=== PATIENT | female | born 1970 ===

== ENCOUNTER 2024-02-20 22:04 | Emergency (ER) | payer OTHER, SELFPAY ==
[2024-02-20 22:16] VITALS: BP 138/76; PULSE 67; RESP 18; TEMP 36.6; O2SAT 98; BMI 30.7
== END 2024-02-20 23:20 | disposition left against medical advice (07) ==
LOC: ED 23:18
PROVIDERS: Emergency Provider Emergency Medicine Emergency Medical Services
DX: Z53.21 Procedure and treatment not carried out due to patient leaving prior to being seen by health care provider (principal)

== ENCOUNTER 2024-02-21 09:47 | Emergency (ER) | payer BC, SELFPAY ==
[2024-02-21] VITALS (7 sets, daily range): BP systolic 143–171; BP diastolic 81–93; PULSE 62–65; RESP 12–18; TEMP 35.9; O2SAT 94–97; BMI 30.6
--- NOTE | 2024-02-21 10:12 | CRLHL7_ITS ---
For Patients: As a result of the 21st Century Cures Act, medical imaging exams and procedure reports are released immediately into your electronic medical record. You may view this report before your referring provider. If you have questions, please contact your health care provider. INDICATION: Left abdominal pain, not otherwise specified. Left back pain. COMPARISON: None available. TECHNIQUE: CT of the abdomen and pelvis without intravenous contrast. Please note that all CT scans at this facility use dose modulation, iterative reconstruction, and/or weight-based dosing when appropriate to reduce radiation dose to as low as reasonably achievable. FINDINGS: The study is performed without intravenous contrast. This limits the sensitivity of the exam for the detection bowel pathology, focal lesions of the abdominopelvic viscera and vascular pathology including significant vascular stenosis, occlusion and dissection. ABDOMEN Liver: Normal hepatic attenuation. No suspicious focal hepatic lesion. No intrahepatic biliary ductal dilatation. Gallbladder: Normal gallbladder size. Normal common duct caliber. No pericholecystic inflammatory changes. Pancreas: Normal pancreatic attenuation. No focal lesion. Normal duct caliber. No peripancreatic inflammatory changes. Spleen: Normal splenic attenuation. No suspicious focal lesion. Adrenal Glands: Symmetrical adrenal glands. No focal lesion of significance. Kidneys: Normal bilateral renal attenuation. 1.3 cm left anterior interpolar renal cortical cyst measuring 11 HU (2; 51). No suspicious focal lesion. No obstructing nephrolith or dilatation of the upper urinary tracts. Gastrointestinal tract: Normal caliber, attenuation and wall thickness of the gastrointestinal tract. No inflammatory changes. Normal mesentery. Normal appendix. Vascular: Chronic moderate aortoiliac atherosclerotic mural calcification. Normal outer wall to outer wall abdominal aortic caliber. Patency and luminal caliber of the abdominopelvic arterial and venous vasculature cannot be assessed on this noncontrast study. Additional findings: No incidental adenopathy. No significant ascites, free fluid or pneumoperitoneum. PELVIS No bladder lesion is identified. No significant incidental findings related to the uterus and uterine adnexae. No abnormal free fluid. No incidental adenopathy. SKELETON AND BODY WALL Moderate L4-L5 disc degeneration. LOWER THORAX Bilateral lower lobe dependent subsegmental atelectasis. IMPRESSION: No acute imaging findings to explain the clinical history of left abdominal and left back pain. Incidental findings described above. Please note that all CT scans at this facility use dose modulation, iterative reconstruction, and/or weight-based dosing when appropriate to reduce radiation dose to as low as reasonably achievable. Dictated by Junior Parker MD @ 02/21/2024 10:57:00 AM (Electronically Signed)
--- NOTE | 2024-02-21 10:57 | ED_ITS ---
HPI - General Adult General Chief complaint: Abdominal Pain Stated complaint: Left side abdomen, back pain Time Seen by Provider: 02/21/24 09:50 Source: patient, family, RN notes reviewed and old records reviewed Mode of arrival: ambulatory Limitations: language barrier History of Present Illness HPI narrative: Patient is a 53-year-old Monegasque-speaking woman here with her son and [id number]. She apparently lives usually in [place] with her daughter and her daughter's children, but has been having more health problems lately and her son brought her down to stay with him as of yesterday. She was recently admitted to the hospital at [facility] secondary to rising creatinine and hyperkalemia. She does have a history of chronic kidney disease, diabetes, hypertension, coronary artery disease and COPD. She is brought in by her family today because of some left-sided back pain with radiation to the left abdomen. Initially family said that this started yesterday, however patient tells me that she had this in the hospital, they may have given her something for pain, she isn't sure. At home she has just been taking Tylenol. It sounds like maybe this pain worsened yesterday. She was discharged on the , with instructions to hold her spironolactone and SARAHI-inhibitor, she was to resume her Jardiance. She saw her primary doctor yesterday, Dr. Holcomb with [facility]. At the t reanna of her visit yesterday, she was denying pain. She did report having problems with anxiety not responding to hydroxyzine. It looks as if sertraline was started. She had a visit with nephrology while in the hospital, this was reviewed. She did have an ultrasound of her kidneys without evidence of hydronephrosis. Hyperkalemia was felt likely related to chronic kidney disease and addition of spironolactone, improved with holding the spironolactone and she was treated with a potassium binder. There are no reported fevers at home. Her family reports that she had a normal dinner last night, so far as they can tell her appetite has been normal. She has been having difficulty with bowel movements but did have a small soft bowel movement this morning. She has not had any diarrhea and has not had any vomiting. Has not reported urinary symptoms. She has a history of tobacco use, apparently quit last year. She does not drink according to family, though I note a previous diagnosis of mild alcohol use disorder. Patient speaks mostly Monegasque, at her request her son is helping to translate. Related Data Home Medications ?Medication ?Instructions ?Recorded ?Confirmed albuterol 90 mcg/actuation aerosol 180 mcg inhalation Q6H PRN 02/20/24 02/21/24 inhaler amlodipine 10 mg tablet (Norvasc) 10 mg PO DAILY 02/20/24 02/21/24 aspirin 81 mg capsule 81 mg PO DAILY 02/20/24 02/21/24 atorvastatin 10 mg tablet 10 mg PO DAILY 02/20/24 02/21/24 benzonatate 100 mg capsule 100 mg PO BID PRN 02/20/24 02/21/24 carvedilol 25 mg tablet 25 mg PO BID 02/20/24 02/21/24 empagliflozin 10 mg tablet 10 mg PO DAILY 02/20/24 02/21/24 hydroxyzine HCl 50 mg tablet 50 mg PO Q6-8H PRN 02/20/24 02/21/24 insulin pump cartridge 02/20/24 02/20/24 sertraline 25 mg tablet 25 mg PO Q24H 02/20/24 02/21/24 atorvastatin 80 mg tablet 80 mg PO QPM 02/21/24 02/21/24 insulin aspart U-100 100 unit/mL 8 unit subcut 3XD 02/21/24 02/21/24 (3 mL) subcutaneous pen (Novolog FlexPen U-100 Insulin aspart) insulin glargine 100 unit/mL (3 60 unit subcut QAM 02/21/24 02/21/24 mL) subcutaneous pen (Lantus Solostar U-100 Insulin) polyethylene glycol 3350 17 g PO 02/21/24 gram/dose oral powder Allergies Allergy/AdvReac Type Severity Reaction Status Date / Time No Known Drug Allergies Allergy Verified 02/20/24 22:11 Review of Systems Status of ROS: Reports: 10 or more systems reviewed and unremarkable except as noted in History and below [facility] Social History Non-prescribed substance use: denies use Exam Narrative: Exam Narrative: Vital signs as noted above. In general, an alert, nontoxic woman. She looks uncomfortable. Head: Normocephalic, atraumatic. Eyes: Pupils are equal reactive. Extraocular movements are full. Conjunctivae are normal. ENT: Mucous membranes are moist. Throat is normal. Neck: Supple without lymphadenopathy. Heart: Regular rate and rhythm. No murmur or rub. Lungs: Clear bilaterally. No increased work of breathing, crackles or wheezes. No CVA tenderness. Abdomen: Soft with some left-sided tenderness, no rebound rigidity or guarding. Extremities: Well perfused. No edema. No calf tenderness. Pulses intact. Neurologic: Patient is alert and oriented to person and place. Speech is fluent. Face is symmetric. Moves all extremities equally. Affect: Normal. Skin: Warm and dry. Well perfused. Const: Vital Signs, click to edit/add: Vital Signs - 24 hr 02/21/24 09:53 02/21/24 11:32 02/21/24 12:01 Temperature 96.6 F L Pulse Rate 62 62 Pulse Rate [Pulse Oximeter] 62 Respiratory Rate 18 14 16 Blood Pressure 156/82 H 156/81 H Blood Pressure [Ri ght Upper Arm] 143/82 H Pulse Oximetry 96 97 97 Oxygen Delivery Me thod Room Air Room Air 02/21/24 12:31 02/21/24 13:01 02/21/24 13:32 Temperature Pulse Rate 62 63 65 Pulse Rate [Pulse Oximeter] Respiratory Rate 16 12 14 Blood Pressure 155/82 H 171/92 H 161/93 H Blood Pressure [Ri ght Upper Arm] Pulse Oximetry 94 97 96 Oxygen Delivery Me thod 02/21/24 14:04 Temperature 96.6 F L Pulse Rate Pulse Rate [Pulse Oximeter] 62 Respiratory Rate 18 Blood Pressure Blood Pressure [Ri ght Upper Arm] 143/82 H Pulse Oximetry Oxygen Delivery Me thod Documenting provider has reviewed patient's vital signs: yes Course Course ED Course: Records were reviewed, which are fairly extensive given recent admission, nephrology consult, imaging and labs. I did elect to do a CT scan without contrast today given renal insufficiency. I recheck labs as well. She had an IV placed and was given 4 mg of morphine for pain control in the meantime. Her white blood cell count is normal at 9.9, hemoglobin is stable at 10.9. Her potassium is normal today at 4.9, sodium normal, her BUN is mildly elevated at 40, creatinine is elevated at 2.6 but this is improved compared to yesterday when it was 3. Potassium has normalized as well. Blood sugar elevated at 196. Lactate was normal, CRP very minimally elevated at 1.3, LFT and lipase normal. Urinalysis took a very long time to get, and is pending at this time. CT scan by my review did not show any evidence of kidney stone, hydronephrosis, perinephric stranding, bowel obstruction or other inflammatory changes. Final radiology review as follows:FINDINGS: The study is performed without intravenous contrast. This limits the sensitivity of the exam for the detection bowel pathology, focal lesions of the abdominopelvic viscera and vascular pathology including significant vascular stenosis, occlusion and dissection. ABDOMEN Liver: Normal hepatic attenuation. No suspicious focal hepatic lesion. No intrahepatic biliary ductal dilatation. Gallbladder: Normal gallbladder size. Normal common duct caliber. No pericholecystic inflammatory changes. Pancreas: Normal pancreatic attenuation. No focal lesion. Normal duct caliber. No peripancreatic inflammatory changes. Spleen: Normal splenic attenuation. No suspicious focal lesion. Adrenal Glands: Symmetrical adrenal glands. No focal lesion of significance. Kidneys: Normal bilateral renal attenuation. 1.3 cm left anterior interpolar renal cortical cyst measuring 11 HU (2; 51). No suspicious focal lesion. No obs tructing nephrolith or dilatation of the upper urinary tracts. Gastrointestinal tract: Normal caliber, attenuation and wall thickness of the gastrointestinal tract. No inflammatory changes. Normal mesentery. Normal appendix. Vascular: Chronic moderate aortoiliac atherosclerotic mural calcification. Normal outer wall to outer wall abdominal aortic caliber. Patency and luminal caliber of the abdominopelvic arterial and venous vasculature cannot be assessed on this noncontrast study. Additional findings: No incidental adenopathy. No significant ascites, free fluid or pneumoperitoneum. PELVIS No bladder lesion is identified. No significant incidental findings related to the uterus and uterine adnexae. No abnormal free fluid. No incidental adenopathy. SKELETON AND BODY WALL Moderate L4-L5 disc degeneration. LOWER THORAX Bilateral lower lobe dependent subsegmental atelectasis. IMPRESSION: No acute imaging findings to explain the clinical history of left abdominal and left back pain. Incidental findings described above. At this time, etiology of her symptoms is unclear. It does sound as if the back pain has been ongoing for a while, and may be muscular in nature. For now would recommend continued use of Tylenol, ice and/or heat may be helpful as well. For severe pain, new symptoms such as fever, vomiting etcetera return to the emergency department. Otherwise, would recommend outpatient follow-up as previously planned with primary care. She did provide a urine sample but does not want to wait for results, we will call if there is anything that requires treatment. Vital Signs Vital signs: Initial Vital Signs Temperature 96.6 F L 02/21/24 09:53 Temperature Source Temporal Artery Scan 02/21/24 09:53 Pulse Rate 62 02/21/24 09:53 Pulse Rhythm Regular 02/21/24 09:53 Respiratory Rate 18 02/21/24 09:53 Blood Pressure 143/82 H 02/21/24 09:53 Blood Pressure Mean 102 02/21/24 09:53 Blood Pressure Position Supine 02/21/24 09:53 Pulse Oximetry 96 02/21/24 09:53 Oxygen Delivery Method Room Air 02/21/24 09:53 Vital Signs Temperature 96.6 F L 02/21/24 09:53 Pulse Rate 62 02/21/24 09:53 Respiratory Rate 18 02/21/24 09:53 Blood Pressure 143/82 H 02/21/24 09:53 Pulse Oximetry 96 02/21/24 09:53 Oxygen Delivery Method Room Air 02/21/24 09:53 Temperature 96.6 F L 02/21/24 14:04 Pulse Rate 62 02/21/24 14:04 Respiratory Rate 18 02/21/24 14:04 Blood Pressure 143/82 H 02/21/24 14:04 Pulse Oximetry 96 02/21/24 13:32 Oxygen Delivery Method Room Air 02/21/24 11:32 Medications Administered Medications: Discontinued Medications Generic Name Dose Route Start Last Admin Trade Name Freq PRN Reason Stop Dose Admin Morphine Sulfate 4 mg 02/21/24 10:12 02/21/24 11:08 Morphine 4 Mg/Ml Inj IVP 02/21/24 10:13 4 mg ONCE ONE Administration Medical Decision Making Lab Data Labs: Lab Results 02/21/24 02/21/24 02/21/24 Range/Units 10:45 11:00 13:29 WBC 9.90 (4.50-11.00) K/uL RBC 4.14 (4.00-5.20) m/uL Hgb 10.9 L (12.0-16.0) gm/dL Hct 34.9 (33.0-51.0) % MCV 84 (80-100) fL MCH 26 (26-34) pg MCHC 31 L (32-36) gm/dL RDW Coeff of Kelly 13.1 (11.5-15.5) % Plt Count 314 (140-440) K/uL Neut % (Auto) 71.6 (42.0-72.0) % Lymph % (Auto) 19.1 L (20-44) % Searcy % (Auto) 7.1 (0.0-11.0) % Eos % (Auto) 1.9 (0.0-7.0) % Baso % (Auto) 0.2 (0.0-3.0) % Neut # (Auto) 7.09 H (1.7-7.0) K/uL Lymph # (Auto) 1.90 (0.90-2.90) K/uL Searcy # (Auto) 0.70 (0.00-0.90) K/UL Eos # (Auto) 0.19 (0.00-0.50) K/uL Baso # (Auto) 0.02 (0.00-0.30) K/uL Abs Immat Gran (auto) 0.01 (0.00-0.30) K/uL Imm/Tot Granulo (auto) 0.1 % Sodium 135 (135-149) mmol/L Potassium 4.9 (3.6-5.1) mmol/L Chloride 105 (96-114) mmol/L Carbon Dioxide 25 (20-32) mmol/L Anion Gap 5 L (7-15) mEq/L BUN 40 H (7-30) mg/dL Creatinine 2.6 H (0.5-1.5) mg/dL Estimated Creat Clear 21.86 Estimated GFR 22 ml/min Glucose 196 H (60-115) mg/dL Lactate 1.0 (0.5-1.9) mmol/L Calcium 9.5 (8.4-10.6) mg/dL Total Bilirubin 0.6 (0.1-1.5) mg/dL Direct Bilirubin 0.3 (0.0-0.5) mg/dL AST 18 (12-35) U/L ALT 17 (4-35) U/L Alkaline Phosphatase 95 (40-150) U/L C-Reactive Protein 1.3 H (0.5-1.0) mg/dL Total Protein 7.5 (6.0-8.3) g/dL Albumin 3.7 (3.3-5.0) g/dL Lipase 161 (23-300) U/L Urine Color Yellow (Yellow) Urine Appearance Clear (Clear) Urine pH 7.0 (5.0-8.5) Ur Specific [place] 1.020 (1.000-1.030) Urine Protein 3+ A (Negative) Urine Glucose (UA) 3+ A (Negative) Urine Ketones Negative (Negative) Urine Blood Trace-intact A (Negative) Urine Nitrite Negative (Negative) Urine Bilirubin Negative (Negative) Urine Urobilinogen 0.2 (0.2-1.0) Ur Leukocyte Esterase Negative (Negative) Urine RBC 2-5 A (0-2) Urine WBC 2-5 (0-5) Ur Squamous Epith Cells Few (None-Few) Urine Bacteria Few A (None) Discharge Plan Discharge Clinical Impression: Left flank pain Patient Disposition: Home, Self-Care Condition: Improved Instructions: Flank Pain (ED) Additional Instructions: Continue use of Tylenol, 1000 mg 3 times daily as needed. Ice or heat may be helpful as well. Lab work today is reassuring, your kidney function, while not normal is improved compared to yesterday. Your potassium is normal today. Your CT scan does not show any evidence of problems with your kidney or other internal organs. I would recommend outpatient follow-up as planned with your primary doctor. Return at any time if you have worsening pain, new symptoms such as fevers, vomiting, etc.. If there are abnormalities on your urinalysis which need to be addressed, we will call you. Contin?e usando Tylenol, 1000 mg 3 veces al d?a seg?n sea necesario. El hielo o el calor tambi?n pueden ser ?tiles. Los an?lisis de laboratorio de hoy son normales, bernard funci?n renal, aunque no es normal, robles citlalli en comparaci?n con yung. Bernard potasio es normal hoy. Bernard tomograf?a computarizada no muestra ninguna evidencia de problemas con bernard ri??n u otros ?rganos internos. Recomendar?a un seguimiento en la clinica seg?n lo planeado. Regrese en cualquier momento si tiene un empeoramiento del dolor, nuevos s?ntomas orlando fiebre, v?mitos, etc. Si hay anomal?as en bernard an?lisis de orina que deban abordarse, lo llamaremos. Prescriptions: No Action sertraline 25 mg tablet 25 mg PO Q24H albuterol 90 mcg/actuation aerosol 180 mcg inhalation Q6H PRN amlodipine [Norvasc] 10 mg tablet 10 mg PO DAILY aspirin 81 mg capsule 81 mg PO DAILY atorvastatin 10 mg tablet 10 mg PO DAILY benzonatate 100 mg capsule 100 mg PO BID PRN carvedilol 25 mg tablet 25 mg PO BID Rx Instructions: must administer with a meal/food empagliflozin 10 mg tablet 10 mg PO DAILY hydroxyzine HCl 50 mg tablet 50 mg PO Q6-8H PRN (DME) insulin pump cartridge .ROUTE atorvastatin 80 mg tablet 80 mg PO QPM polyethylene glycol 3350 17 gram/dose powder PO insulin aspart U-100 [Novolog FlexPen U-100 Insulin] 100 unit/mL (3 mL) insulin pen 8 unit subcut 3XD insulin glargine [Lantus Solostar U-100 Insulin] 100 unit/mL (3 mL) insulin pen 60 unit subcut QAM Follow Up/Referrals: Estee Holcomb MD [Primary Care Provider] - Stand Alone Forms: [facility] Info Instructions
[2024-02-21 11:08] LABS: Basophils Absolute Auto 0.02 K/uL (0.00-0.30); Basophils Percent Auto 0.2 % (0.0-3.0); Eosinophils Absolute Auto 0.19 K/uL (0.00-0.50); Eosinophils Percent Auto 1.9 % (0.0-7.0); Hematocrit 34.9 % (33.0-51.0); Hemoglobin* 10.9 gm/dL (12.0-16.0); Immature Granulocytes Abs Auto 0.01 K/uL (0.00-0.30); Immature Granulocytes Pct Auto 0.1 %; Lymphocytes Percent Auto 19.1 % (20-44); Mean Corpuscular HGB Conc 31 gm/dL (32-36); Mean Corpuscular Hemoglobin 26 pg (26-34); Mean Corpuscular Volume 84 fL (80-100); Monocytes Percent Auto 7.1 % (0.0-11.0); Neutrophils Absolute Auto 7.09 K/uL (1.7-7.0); Neutrophils Percent Auto 71.6 % (42.0-72.0); Platelet Count* 314 K/uL (140-440); RDW Coefficient of Variation % 13.1 % (11.5-15.5); Red Blood Count 4.14 m/uL (4.00-5.20)
[2024-02-21] MEDS: MORPHINE 4 MG/ML INJ IVP (11:08)
[2024-02-21 11:09] LABS: Slide Review Reflex No
[2024-02-21 11:33] LABS: Albumin* 3.7 g/dL (3.3-5.0)
[2024-02-21 11:36] LABS: Alanine Aminotransferase* 17 U/L (4-35); Alkaline Phosphatase* 95 U/L (40-150); Aspartate Amino Transferase* 18 U/L (12-35); Bilirubin Direct* 0.3 mg/dL (0.0-0.5); Bilirubin Total* 0.6 mg/dL (0.1-1.5); Lipase* 161 U/L (23-300); Total Protein* 7.5 g/dL (6.0-8.3)
[2024-02-21 11:37] LABS: Chloride* 105 mmol/L (96-114); Potassium* 4.9 mmol/L (3.6-5.1); Sodium* 135 mmol/L (135-149)
[2024-02-21 11:40] LABS: Anion Gap 5 mEq/L (7-15); Blood Urea Nitrogen* 40 mg/dL (7-30); Carbon Dioxide* 25 mmol/L (20-32); Creatinine* 2.6 mg/dL (0.5-1.5); Est. Creatinine Clearance* 21.86; Estimated Glomerular Filt Rate 22 ml/min
[2024-02-21 11:41] LABS: Calcium* 9.5 mg/dL (8.4-10.6); Glucose* 196 mg/dL (60-115)
[2024-02-21 11:43] LABS: C Reactive Protein* 1.3 mg/dL (0.5-1.0)
[2024-02-21 13:44] LABS: Appearance Urine Clear (Clear); Bilirubin Urine Negative (Negative); Blood Urine Trace-intact (Negative); Color Urine Yellow (Yellow); Glucose Urine 3+ (Negative); Ketones Urine Negative (Negative); Leukocyte Esterase Urine Negative (Negative); Nitrite Urine Negative (Negative); Protein Urine 3+ (Negative); Urobilinogen Urine 0.2 (0.2-1.0)
[2024-02-21 13:51] LABS: Bacteria Urine Few; Squamous Epithelial Cell Urine Few (None-Few)
== END 2024-02-21 13:55 | disposition home or self-care (01) ==
PROVIDERS: Emergency Provider Emergency Medicine; PCP Student in an Organized Health Care Education/Training Program
DX: R10.9 Unspecified abdominal pain (principal)
CPT/HCPCS: 36415; 74176; 80048; 80076; 81001; 83605; 83690; 85025; 86140; 87086; 96374; 99284; J2270